=== PATIENT | male | born 1985 | race African-American/Black ===

== ENCOUNTER 2021-03-03 20:13 | Emergency (ER) | payer OTHER, SELFPAY ==
[2021-03-03 21:32] VITALS: BP 122/71; PULSE 59; RESP 12; TEMP 36.6; O2SAT 100; BMI 26.5
[2021-03-03 21:40] VITALS: BP 122/70; PULSE 59; RESP 12; TEMP 36.6
--- NOTE | 2021-03-03 21:51 | HMH.EDUTC ---
[facility] Disposition Clinical Impression: Close exposure to COVID-19 virus Disposition: Home, Self-Care Condition on Discharge: Good Instructions: DI for COVID-19 (Suspected or Confirmed ), Coronavirus Disease 2019, Preventing the Spread of Coronavirus Discharge Instructions Additional Instructions: *Monitor Temp, Over the counter Motrin or Tylenol as directed/as needed Tylenol every 4 hours and Motrin every 6 hours (as long as your family doctor has told you that you can take it) for fever or pain. and straight to ER if unable to lower temp less than 101.0 after medication given Follow up IMMEDIATELY for new or worsening symptoms or no Noticeable improvement over the next 48-72 hours. 911 for difficulty breathing or swallowing You were tested for today for COVID19 your test result should be back in the next 24-48 hours, you may call to the [facility] to see if your test results are back in the next 48 hours [phone] [facility] hours are 9am-9pm You was given a handout with instructions for Self Quarantine and Self isolation for while you wait on test results and what to do if they are positive If you are positive the Health Dept will be contacting you also Make sure to take your Vitamins Vit. C Vit D and Zinc if you can take them Referrals: Provider,Referral, MD [Primary Care Provider] - As needed Forms: Work/School Release Time of Disposition: 21:57 Medical Decision Making - Ronan Inquiry Pt receiving controlled substance: No Rnoan was queried for this patient: No Vital Signs: 03/03/21 21:32 03/03/21 21:40 Temperature 98 F 98 F Temperature Source Oral Pulse Rate 59 L Pulse Rate [Left] 59 L Respiratory Rate 12 12 Blood Pressure 122/70 Blood Pressure [Right Arm] 122/71 Blood Pressure Mean [Right Arm] 88 02 Sat by Pulse Oximetry 100 Orders (Tests/Meds): ORDERS Category Date Time Status Covid-19 Nasal PCR ([facility]) Routine Lab 03/03/21 21:30 Ordered [facility] HPI - General Stated complaint: covid test Time Seen by Provider: 03/03/21 21:51 Mode of Arrival: Ambulatory Source of Information: Patient Limitations: No Limitations Description of Symptoms (Recalled from Triage Doc. by RN): pt was exposed to covid positive child. pt is asymptomatic. HEENT Symptoms (Recalled from RN notes): No Resp Symptoms (Recalled from RN notes): No Skin Symptoms (Recalled from RN notes): No MS Symptoms (Recalled from RN notes): No Functional Status (Recalled from RN notes): na - History of Present Illness Provider Complaint: Patient state that his girlfriends son tested positive for COVID and he was around him last week States that his work told him to wait 5 days after his exposure and get tested for COVID before he can return to work States that he is not having any symptoms at this time but needed to get tested due to exposure - Worker's Comp Is this a Worker's Comp case?: No [facility] History - Hepatitis A Screen Drug use history?: No High risk sexual behaviors?: No History of sexually transmitted infection?: No Currently employed?: No Childcare worker?: No Do you have indoor plumbing?: Yes Do you have electricity?: Yes Attestation statement:: This patient has been screened for Hepatitis A risk factors. I have reviewed the patient's past medical history: Yes ROS Obtained: Yes All systems reviewed & no additional complaints, Yes Systems reviewed as appropriate & no additional complaints - Constitutional Constitutional: Reports system reviewed and no additional complaints, except as docu, Denies body ache, Denies chills, Denies fever(s), Denies headache(s) - ENT Ears, Nose, Mouth, and Throat: Reports system reviewed and no additional complaints, except as docu, Denies nasal congestion, Denies nasal discharge, Denies sore throat - Cardiovascular Cardiovascular: Reports system reviewed and no additional complaints, except as docu - Respiratory Respiratory: Reports system reviewed and no additional complaints, except
== END 2021-03-03 22:03 | disposition home or self-care (01) ==
PROVIDERS: Emergency Provider Nurse Practitioner
DX: Z20.822 Contact with and (suspected) exposure to COVID-19 (principal)
CPT/HCPCS: 99202; G0463; U0003

== ENCOUNTER 2021-03-15 17:52 | Emergency (ER) | payer OTHER, SELFPAY ==
[2021-03-15 19:00] VITALS: BP 125/87; PULSE 72; RESP 20; TEMP 36.2; O2SAT 99; BMI 26.5
[2021-03-15 19:20] VITALS: BP 125/87; PULSE 72; RESP 20; TEMP 36.2; O2SAT 99
--- NOTE | 2021-03-15 19:21 | HMH.EDUTC ---
[facility] [place] Clinical Impression: Viral syndrome, Encounter for laboratory testing for COVID-19 virus Disposition: Home, Self-Care Condition on Discharge: Good Instructions: DI for COVID-19 (Suspected or Confirmed ), Coronavirus Disease 2019, Preventing the Spread of Coronavirus Discharge Instructions Additional Instructions: *Monitor Temp, Over the counter Motrin or Tylenol as directed/as needed Tylenol every 4 hours and Motrin every 6 hours (as long as your family doctor has told you that you can take it) for fever or pain. and straight to ER if unable to lower temp less than 101.0 after medication given *Warm salt water gargles may help to soothe the throat *Throat Lozenges *Warm fluids like tea with honey may help to soothe the throat *Sleep elevated *Humidifier/Vaporizer Follow up IMMEDIATELY for new or worsening symptoms or no Noticeable improvement over the next 48-72 hours. 911 for difficulty breathing or swallowing You were tested for today for COVID19 your test result should be back in the next 24-48 hours, You was given instructions to check on [facility] for your results if you do not have internet access you may call the [facility] You was given a handout with instructions for Self Quarantine and Self isolation for while you wait on test results and what to do if they are positive If you are positive the Health Dept will be contacting you also Make sure to take your Vitamins Vit. C Vit D and Zinc if you can take them Referrals: Provider,Referral, [Primary Care Provider] - As needed Forms: Work/School Release Medical Decision Making - Ronan Inquiry Pt receiving controlled substance: No Ronan was queried for this patient: No Vital Signs: 03/15/21 19:00 Temperature 97.1 F L Temperature Source Oral Pulse Rate [Right Brachial] 72 Respiratory Rate 20 Blood Pressure [Right Arm] 125/87 Blood Pressure Mean [Right Arm] 99 Blood Pressure Source [Right Arm] Automatic Cuff Blood Pressure Position [Right Arm] Sitting 02 Sat by Pulse Oximetry 99 Oxygen Delivery Method Room Air Orders (Tests/Meds): ORDERS Category Date Time Status Covid-19 Nasal PCR ([facility]) Routine Lab 03/15/21 19:19 [place] [facility] [place] - General Stated complaint: covid test Time Seen by Provider: 03/15/21 19:21 Mode of Arrival: Ambulatory Source of Information: Patient Limitations: No Limitations Description of Symptoms (Recalled from Triage Doc. by RN): COVID TEST D/T EXPOSURE. C/O CHILLS, DIARRHEA, LOSS OF TASTE AND SMELL HEENT Symptoms (Recalled from RN notes): Yes Resp Symptoms (Recalled from RN notes): No Skin Symptoms (Recalled from RN notes): No MS Symptoms (Recalled from RN notes): No Functional Status (Recalled from RN notes): WNL - History of Present Illness Provider Complaint: Patient state that he has been not feeling well for close to a week States that he was exposed to COVID States that he has been having body aches, chills and loss of taste and smell States that work wanted him to come back but he wanted to get tested to make sure that he doesnt have it - Related Data Allergies Allergy/AdvReac Type Severity Reaction Status Date / Time No Known Allergies Allergy Verified 03/15/21 19:19 - Worker's Comp Is this a Worker's Comp case?: No [facility] History - Hepatitis A Screen Drug use history?: No High risk sexual behaviors?: No History of sexually transmitted infection?: No Currently employed?: No Childcare worker?: No Do you have indoor plumbing?: Yes Do you have electricity?: Yes Attestation statement:: This patient has been screened for Hepatitis A risk factors. I have reviewed the patient's past medical history: Yes ROS Obtained: Yes All systems reviewed & no additional complaints, Yes Systems reviewed as appropriate & no additional complaints - Constitutional Constitutional: Reports system reviewed and no additional complaints, except as docu, Reports body ache, Reports chills, Rep
== END 2021-03-15 19:25 | disposition home or self-care (01) ==
PROVIDERS: Emergency Provider Nurse Practitioner
DX: U07.1 COVID-19 (principal)
CPT/HCPCS: 99202; G0463; U0003

== ENCOUNTER 2025-03-12 11:24 | Outpatient (CLI) | payer BC, OTHER, SELFPAY ==
--- OUTSIDE RECORDS SUMMARY | 2025-03-02 00:05 | XMS_ITS | Encounter Summary ---
Author Organization Healthcare Address [address] [place] [address] Care Team Providers Care Cooler Tender Name Role Phone Pcp, No Primary Care Provider Unavailabl e Reason for Referral * Consultation (Routine) - Authorized Specialty Diagnoses / Procedures Referred By Contcheri t Referred To Contact Family Medicine Diagnoses External hemorrhoid Estuardo Hernandez DO [address] [place] [address] Phone: tel: fax: Referral ID Status Reason Start Date Expiration Date Visits Requested Visits Authorized [id number] Authorized Specialty Services Required 03/02/2025 09/01/2026 1 1 Scheduling Instructions Needs to establish care as well as talk about hemorrhoid further treatment Reason for Visit * Reason Comments Hemorrhoids Encounter Details Date Type Department Care Team ([facility] Contact Info) Description 03/02/2025 12:05 AM EDT - 03/02/2025 2:33 AM EDT Emergency [facility] Department [address] [place] [address] Estuardo Hernandez DO [address] [place] [address] External hemorrhoid (Primary Dx) Discharge Disposition: Home or Self Care Social History Tobacco Use Types Packs/Day Years Used Date Smoking Tobacco: Never Assessed Sex and Gender Information Value Date Recorded Sex Assigned at Not on file Legal Sex Male 9:53 PM EDT Gender Identity Not on file Sexual Orientation Not on file documented as of this encounter Last Filed Vital Signs Vital Sign Reading Time Taken Comments Blood Pressure 136/89 03/02/2025 2:30 AM EDT Pulse 79 03/02/2025 2:30 AM EDT Temperature 36.5 C (97.7 F) 03/02/2025 2:30 AM EDT Respiratory Rate 18 03/02/2025 12:00 AM EDT Oxygen Saturation 99% 03/02/2025 2:30 AM EDT Inhaled Oxygen Concentration - - Weight 82.6 kg (182 lb) 03/02/2025 12:00 AM EDT Height 177.8 cm (5' 10 ) 03/02/2025 12:00 AM EDT Body Mass Index 26.11 03/02/2025 12:00 AM EDT documented in this encounter Functional Status * Calculated C-SSRS Risk Score (Lifetime/Recent) Answer Date of Assessment Author No Risk Indicated 03/02/2025 12:15 AM EDT Sumit Weathers RN * Question Answer Date of Assessment Author 1. Wish to be (Past 1 Month) No 12:15 AM EDT Sumit Weathers RN 2. Non-Specific Active Suici ethan Thoughts (Past 1 Month) No 03/02/2025 12:15 AM EDT Sumit Weathers RN 6. Suicidal Behavior (Lifetime) No 12:15 AM EDT Sumit Weathers RN documented as of this encounter Discharge Instructions * Discharge Instructions* Adonis Fitch MD - 03/02/2025 2:04 AM EDT You were seen in the emergency department for evaluation of external hemorrhoids. After history andphysical exam, it was noted that you had external hemorrhoids that had minor bleeding without concern for thrombosis or hemorrhage. It is recommended that you increase fiber intake, go to the bathroom 1-2 times daily, taking laxatives if needed to have soft stool, and to decrease straining on the toilet. If he began to have blood with in your stool, have large clots or hemorrhage of blood on the toilet, or other concern please return to the emergency department for further evaluation. We will provide you with a prescription for hemorrhoid cream as well as a referral to family Medicine to establish care for a primary care provider. documented in this encounter Medications at Time of Discharge hydrocortisone (Anusol-HC) 2.5 % rectal cream Insert 1 Application into the rectum 2 times a day. 28 g 3 03/02/2025 documented as of this encounter Miscellaneous Notes * ED Provider Notes - Adonis Fitch MD - 03/01/2025 11:57 PM EDT Images from the original note were not included. - HPI Chief Complaint Patient presents with Hemorrhoids Previously healthy 39-year-old who presented for evaluation of hemorrhoids. Initially told triage nurse that hemorrhoids have been going on for approximately 8 months. On personal interview, when asked why he was in the emergency department he initially did not remember no look up a text message that a friend who is being seen in the emergency department for evaluation of h emorrhoid. Uncertain of the hemorrhoid has been present for approximately 1 week. Denies overt blood in the stool, endorses small amount of red blood when wiping on the toilet paper. Denies other concerns today. Denies difficulty breathing, fever, chest pain, lightheadedness, dizziness, headache. Denies abdominal pain. Patient History Past Medical History[1] Surgical History[2] Family History[3] Social History[4] Allergies: Allergies[5] Physical Exam ED Triage Vitals [03/02/25 0000] Temp Heart Rate Resp BP 36.8 ??C (98.2 ??F) 72 18 (!) 151/99 SpO2 Temp Source Heart Rate Source Patient Position 97 % Oral -- -- BP Location FiO2 (%) -- -- Physical Exam Cardiovascular: Rate and Rhythm: Normal rate and regular rhythm. Pulmonary: Effort: Pulmonary effort is normal. No respiratory distress. Breath sounds: No wheezing, rhonchi or rales. Abdominal: General: Abdomen is flat. There is no distension. Palpations: Abdomen is soft. There is no mass. Tenderness: There is no abdominal tenderness. Genitourinary: Rectum: Tenderness and external hemorrhoid present. Skin: Capillary Refill: Capillary refill takes less than 2 seconds. Neurological: General: No focal deficit present. Mental Status: He is alert. Psychiatric: Attention and Perception: He is inattentive. Speech: Speech is delayed. Behavior: Behavior is slowed. Cognition and Memory: He exhibits impaired recent memory. Comments: Patient appears high which is also in the context of recently smoking weed; initially forgot why he was in the emergency department and then later mentioned multiple times that nearby foodssmelled really good and he wanted something Yasmeen Coma Scale Score: 15 ED Course & MDM - Assessment: 39 y.o. male presents to ED with complaint of blood on toilet paper when wiping and concern for hemorrhoid. It should be noted that the chronic conditions includes tobacco use disorder, substance usedisorder, and minimal past medical history known the patient, which currently is not at goal therapy. This complicates the clinical picture because it Comorbidities: may be exacerbating symptoms, increases the amount and complexity of data to be reviewed, and increases the risk for morbidity Differential Diagnosis: Bright red blood per rectum, hemorrhoids, diverticulosis, anal fissure, perianal skin irritation In order to fully explore the differential diagnosis the following treatments and tests were ordered: All Other Orders Ordered Status Ordering Provider 03/02/25203 Discharge Ambulatory referral to Family Medicine Ordered ADONIS FITCH ED Course as of 03/02/25 020 Sun Mar 02, 2025 0144 Patient in no apparent distress on initial evaluation and hemodynamically stable, patient initially unsure as to why he was in the emergency department. He then looked at a text message that he sent to a friend that told the friend that he was in the emergency department to have a hemorrhoid looked at. [AK] 0145 During interview, patient mentioned multiple times that there was nearby food that smelled good [AK] 0146 Reports 1 week of blood on the toilet paper but no blood in his stool, denies rectal pain [AK] 0146 Denies lightheadedness, dizziness, chest pain, difficulty breathing, or other symptoms [AK] 0147 Patient reports smoking weed daily and recently smoking weed prior to coming in for evaluation[AK] 0200 Physical exam consistent with external hemorrhoids that had minor bleeding when recently wiping rectum while on toilet [AK] ED Course User Index [AK] Adonis Fitch MD Clinical Impressions as of 03/02/25 020 External hemorrhoid Social Determinates of Health Risks (including Economic Stability, Education and level of understanding, Healthcare access and quality and concerning social factors): Poor health literacy, No current PCP, Chronic tobacco use, Acute or chronic drug and alcohol use, and Poor social support Ultimately, this patient was Was discharged Home (Discharge) The encounter diagnosis was External hemorrhoid. . Patient was counseled on the diagnoses. Discharge medications if any are listed below. Listed medications are thought be either curativefor listed diagnoses or will help control ongoing symptoms. Patient is requested to follow up with Patient's Primary Care Provider in order to obtain routine follow-up and to establish care. Instructions on follow up as well as precautions to return to the ER provided verbally by the EM provider, as well as written in patients discharge education packet. ED Prescriptions Medication Sig Dispense Start Date End Date Auth. Provider hydrocortisone (Anusol-HC) 2.5 % rectal cream Insert 1 Application into the rectum 2 times a day. 28 g 03/02/2025 04/01/2025 Adonis Fitch MD Discharge Instructions You were seen in the emergency department for evaluation of external hemorrhoids. After history andphysical exam, it was noted that you had external hemorrhoids that had minor bleeding without concern for thrombosis or hemorrhage. It is recommended that you increase fiber intake, go to the bathroom 1-2 times daily, taking laxatives if needed to have soft stool, and to decrease straining on the toilet. If he began to have blood with in your stool, have large clots or hemorrhage of blood on the toilet, or other concern please return to the emergency department for further evaluation. We will provide you with a prescription for hemorrhoid cream as well as a referral to family Medicine to establish care for a primary care provider. Disposition Discharge Follow-Ups: Follow up with Pcp, No (Family Medicine) Discharge Orders Discharge Ambulatory referral to Family Medicine Authorized - [1] No past medical history on file. [2] No past surgical history on file. [3] No family history on file. [4] [5] No Known Allergies Adonis Fitch MD Resident 03/02/25 0224 Cosigned by Estuardo Hernandez DO at 03/07/2025 8:08 AM EDT Associated attestation - Estuardo Hernandez DO - 03/07/2025 8:08 AM EDT I saw and evaluated the patient with the resident/fellow. I discussed the case with the resident/fellow and agree with the findings and plan as documented. * ED Triage Notes - Maryuri Morillo, RN - 03/01/2025 11:57 PM EDT Pt arrived via POV with c/o hemorrhoids x8 months. documented in this encounter Plan of Treatment Scheduled Referrals Name Type Priority Associated Diagnoses Order Schedule Discharge Ambulatory referral to Family Medicine Outpatient Referral Routine External hemorrhoid Expected: 03/02/2025 (Approximate), Expires: 09/03/2026 documented as of this encounter Visit Diagnoses Diagnosis External hemorrhoid- Primary External hemorrhoids without mention of complication documented in this encounter Care Teams Cooler Tender Relationship Specialty Start Date [place] [address] PCP - General Family Medicine 03/02/25 documented as of this encounter
[2025-03-12 15:45] LABS: Hematocrit 45.6 % (42.0-52.0); Hemoglobin 15.1 g/dL (14.1-18.0); Immature Granulocytes % 0 %; Mean Corpuscular HGB Conc 33.1 g/dL (31.8-35.4); Mean Corpuscular Hemoglobin 30.3 pg (27.0-31.2); Mean Corpuscular Volume 91.4 fl (80-94); Nucleated Red Blood Cells % 0 %; Platelet Count 247 K/mm3 (142-424); Red Blood Count 4.99 M/mm3 (4.60-6.20); Red Cell Distribution Width-SD 56.6 fL; White Blood Count 5.2 K/mm3 (4.8-10.8)
[2025-03-12 16:45] LABS: Alanine Aminotransferase 26 U/L (12-78); Albumin Level 4.4 g/dl (3.5-5.0); Albumin/Globulin Ratio 1.8 (1.1-1.8); Alkaline Phosphatase 90 U/L (38-126); Anion Gap 12.0 mEq/L (5-15); Aspartate Amino Transferase 33 U/L (17-59); Blood Urea Nitrogen 13 mg/dl (9-20); Calcium 9.7 mg/dl (8.4-10.2); Carbon Dioxide 29 mmol/L (22.0-30.0); Chloride 105 mmol/L (98-107); Creatinine,Serum 1.20 mg/dl (0.66-1.25); Estimated Glomerular Filt Rate 68 ml/min (>60); GFR (African American) 82 ML/MIN (>60); Globulin 2.5 g/dL (1.3-3.2); Glucose 86 mg/dl (74-100); Potassium 5.0 mmoL/L (3.5-5.1); Sodium 141 mmol/L (136-145); Total Protein,Serum 6.9 g/dl (6.3-8.2)
[2025-03-12 17:40] LABS: Bilirubin,Total < 0.1 mg/dl (0.2-1.3)
--- OUTSIDE RECORDS SUMMARY | 2025-03-14 10:06 | XMS_ITS | Encounter Summary ---
Author Organization Healthcare Address [address] [place] [address] Care Team Providers Care Chip Silo Tender Name Role Phone Pcp, No Primary Care Provider Unavailabl e Encounter Details Date Type Department Care Team (Latest Contact Info) Description 03/02/2025 Travel Social History Tobacco Use Types Packs/Day Years Used Date Smoking Tobacco: Never Assessed Sex and Gender Information Value Date Recorded Sex Assigned at Not on file Legal Sex Male 9:53 PM EDT Gender Identity Not on file Sexual Orientation Not on file documented as of this encounter Functional Status * Calculated C-SSRS Risk Score (Lifetime/Recent) Answer Date of Assessment Author No Risk Indicated 03/02/2025 12:15 AM EDT Sumit Weathers RN * Question Answer Date of Assessment Author 1. Wish to be (Past 1 Month) No 025 12:15 AM Sumit Dawson RN 2. Non-Specific Active Suici ethan Thoughts (Past 1 Month) No 03/02/2025 12:15 AM uSmit Dawson RN 6. Suicidal Behavior (Lifetime) No 12:15 AM Sumit Dawson RN documented as of this encounter Plan of Treatment Not on file documented as of this encounter Visit Diagnoses Not on filedocumented in this encounter Care Teams Chip Silo Tender Relationship Specialty Start Date End Date Pcp, No [address] [place] [address] PCP - General Family Medicine 03/02/25 documented as of this encounter
--- OUTSIDE RECORDS SUMMARY | 2025-03-14 10:06 | XMS_ITS | Clinical Summary ---
Author Organization [facility] Address [address] [place] [address] Phone [email or web address] Care Team Providers Care Metal Cnc Operator Name Role Phone Unavailable Primary Care Provider Unavailabl e Allergies No known active allergies Medications No known medications Active Problems No known active problems Social History Tobacco Use Types Packs/Day Years Used Date Smoking Tobacco: Every Day Cigarettes E-Cigarettes Smokeless Tobacco: Never Tobacco Cessation:Ready to Q uit: Not Asked; Counseling Given: Not Answered Stress Answer Date Recorded Stress in your Life Not on file 05/15/2024 Dealing with Stress 3 05/15/2024 Sex and Gender Information Value Date Recorded Sex Assigned at Not on file 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 Gender Identity Not on file Sexual Orientation Not on file Last Filed Vital Signs Vital Sign Reading Time Taken Comments Blood Pressure 138/82 12/11/2024 7:10 PM EDT Pulse 77 12/11/2024 7:10 PM EDT Temperature 36.7 C (98.1 F) 12/11/2024 7:10 PM EDT Respiratory Rate - - Oxygen Saturation 99% 10/04/2023 11:44 AM EDT Inhaled Oxygen Concentration - - Weight 78.1 kg (172 lb 3.2 oz) 10/04/2023 11:44 AM EDT Height 174 cm (5' 8.5 ) 10/04/2023 11:44 AM EDT Body Mass Index 25.8 10/04/2023 11:44 AM EDT Plan of Treatment Health Maintenance Due Date Last Done Comments Dental Cleaning/Exam 1987 HIV Screening 1987 Hepatitis C Screening 1987 HPV Immunization (1 - Male 3-dose series) 12/24/2002 Hep B Infection Screening - Triple Screen 12/24/2005 Pneumococcal: Ped (0 to 5 Yrs) and At-Risk Member (6 to 64 Yrs) (1 of 2 - PCV) 12/24/2006 Tetanus Diphtheria and Pertussis Immunization (1 - Tdap) 12/24/2006 Annual Preventive Exam 10/03/2024 10/04/2023, 2021 Covid-19 Immunization (1 - 2023- season) 2025 Influenza Immunization (#1) 2025 Hepatitis B Immunization Completed 001, 07/28/2000, 11/15/1999, Additional history exists HIB Immunization Aged Out No longer e ligible based on patient's age to complete this topic Hepatitis A Immunization Aged Out No longer eligible based on patient's age to complete this topic Polio Immunization Aged Out No longer eligible based on patient's age to complete this topic Varicella Immunization Aged Out No lo nger eligible based on patient's age to complete this topic Insurance [address] [place] [id number] OPT OUT NO COPAY [place] [address] [place] [id number]
--- OUTSIDE RECORDS SUMMARY | 2025-03-14 10:06 | XMS_ITS | Clinical Summary ---
Author Organization Healthcare Address [address] [id number] Care Team Providers Care Film Washer Name Role Phone Pcp, No Primary Care Provider Unavailabl e Allergies No known active allergies Medications hydrocortisone (Anusol-HC) 2.5 % rectal cream Insert 1 Application into the rectum 2 times a day. 28 g 3 04/01/20 25 Active Encounters Date Type Department Care Team Description 03/02/2025 12:05 AM EDT - 03/02/2025 2:33 AM EDT Emergency [facility] [address] [place] [address] Estuardo Hernandez DO External hemorrhoid (Primary Dx) Discharge Disposition: Home or Self Care 03/02/2025 Travel from Last 3 Months Social History Tobacco Use Types Packs/Day Years [...] Mass Index 26.11 03/02/2025 12:00 AM EDT Plan of Treatment Health Maintenance Due Date Last Done Comments [facility]-Depression Screening 1987 [facility]-HIV Screening 1987 [facility]-Hepatitis C Screening 1987 [facility]-Infant/Child/Adol SDOH Screenings 1987 [facility]-Obesity Intervention 12/24/1993 [facility]-Varicella Vaccines (1 of 2 - 13+ 2-dose series) 12/24/2000 [facility]- SDOH Screenings 12/24/2005 [facility]-Adult SDOH Screenings 12/24/2005 [facility]-DTaP,Tdap,and Td Vaccines (1 - Tdap) 12/24/2006 HPV Vaccines (1 - 3-dose SCDM series) 12/24/2014 [id number] Vaccine ( - 2023-25 season) 2024 [facility]-Influenza Vaccine (#1) 2025 [facility]-Zoster Vaccines (1 of 2) 12/24/2037 [facility]-Hepatitis B Vaccines Completed 001, 07/28/2000, 11/15/1999, Additional history exists [facility]-HIB Vaccines Aged Out No longer e ligible based on patient's age to complete this topic [facility]-Hepatitis A Vaccines Aged Out No longer eligible based on patient's age to complete this topic [facility]-IPV Vaccines Aged Out No longer e ligible based on patient's age to complete this topic [facility]-Pneumococcal Vaccine: Pediatrics (0 to 5 Years) and At-Risk Patients (6 to 49 Years) Aged Out No longer eligible based on patient's age to complete this topic [facility]-Rotavirus Vaccines Aged Out No lo nger eligible based on patient's age to complete this topic Insurance [employer] [facility] MEDICAID [place] Care Teams Film Washer Relationship Specialty Start Date End Date Pcp, [place] [address] PCP - General Family Medicine 03/02/25
== END 2025-03-12 23:59 ==
LOC: LAB.DROPOF 03-14 10:04
PROVIDERS: PCP Family Medicine; Visit Provider Family Medicine
DX: F41.9 Anxiety disorder, unspecified (principal); K62.5 Hemorrhage of anus and rectum
CPT/HCPCS: 80053; 85025